=== PATIENT | male | born 1990 | race Caucasian/White ===

== ENCOUNTER 2021-12-16 11:59 | Emergency (ER) | payer SELFPAY ==
[~2021-12-16] VITALS: Ht 193 cm; Wt 82.0 kg
[2021-12-16 12:42] VITALS: BP 136/102
[2021-12-16] MEDS ORDERED: AMOXICILLIN500 M2 PO (14:23)
== END 2021-12-16 14:26 | disposition home or self-care (01) | DRG 159 ==
LOC: ED 11:59
DX: K08.89 Other specified disorders of teeth and supporting structures (principal)